=== PATIENT | male | born 1980 | race Caucasian/White ===

== ENCOUNTER → 2020-09-23 | Outpatient (CLI) | payer OTHER | LOC: MRI 13:24 | PROVIDERS: ATTEND Family Medicine | DX: M25.552 Pain in left hip (principal) | CPT/HCPCS: 72195 ==

== ENCOUNTER 2020-12-05 15:00 | Outpatient (RCR) | payer OTHER | END 2020-12-13 | LOC: PT 15:00 | PROVIDERS: ATTEND Orthopaedic Surgery | DX: S32.511D Fracture of superior rim of right pubis, subsequent encounter for fracture with routine healing (principal); S32.512D Fracture of superior rim of left pubis, subsequent encounter for fracture with routine healing; S32.592D Other specified fracture of left pubis, subsequent encounter for fracture with routine healing; M48.48XD Fatigue fracture of vertebra, sacral and sacrococcygeal region, subsequent encounter for fracture with routine healing; S76.012D Strain of muscle, fascia and tendon of left hip, subsequent encounter; M62.81 Muscle weakness (generalized); M25.551 Pain in right hip; M25.651 Stiffness of right hip, not elsewhere classified ==

== ENCOUNTER 2020-12-14 15:09 | Outpatient (RCR) | payer OTHER | END 2021-01-12 | LOC: PT 15:09 | PROVIDERS: ATTEND Orthopaedic Surgery | DX: S32.511D Fracture of superior rim of right pubis, subsequent encounter for fracture with routine healing (principal); S32.512D Fracture of superior rim of left pubis, subsequent encounter for fracture with routine healing; S32.592D Other specified fracture of left pubis, subsequent encounter for fracture with routine healing; M48.48XD Fatigue fracture of vertebra, sacral and sacrococcygeal region, subsequent encounter for fracture with routine healing; S76.012D Strain of muscle, fascia and tendon of left hip, subsequent encounter; M62.81 Muscle weakness (generalized); M25.551 Pain in right hip; M25.651 Stiffness of right hip, not elsewhere classified ==